=== PATIENT | male | born 1960 | race Two or more races ===

== ENCOUNTER 2022-12-22 14:15 | Outpatient (CLI) | payer OTHER ==
[~2022-12-22] VITALS: Ht 177.8 cm; Wt 81.6 kg
[2022-12-22] MEDS ORDERED: albuterol 2.5 MG/3 ML nebule NEB PRN (15:05)
== END 2022-12-22 23:59 | disposition home or self-care (01) ==
LOC: RT 14:15
PROVIDERS: ATTEND Chiropractor
DX: J98.9 Respiratory disorder, unspecified (principal)
CPT/HCPCS: 71046; 94060; 94760